=== PATIENT | female | born 1950 | race Caucasian/White ===

== ENCOUNTER 2017-01-25 09:02 | Day surgery (SDC) | payer OTHER, MEDICARE ==
--- NOTE | 2017-01-10 15:45 | HP ---
DATE OF ADMISSION: 01/25/2017 BRIEF HISTORY: This is a 66-year-old female who presented to the office with 2 complaints. One is complaining of a soft tissue mass in her right thigh x2 and a mass in her right hand. The patient states touching the mass in the hand causes her discomfort as well as touching the mass on her thigh. Therefore, she presented for evaluation. She has had these for many, many years. PAST MEDICAL HISTORY: Significant for kidney stones, cardiac disease, and hypertension. PAST SURGICAL HISTORY: Removal of the kidney stones, left knee replacement, and excisions of previous skin nevi. MEDICATIONS: Cardizem. ALLERGIES: None. SOCIAL HISTORY: The patient does not smoke nor drink. PHYSICAL EXAMINATION: Lungs: Clear. Heart: Regular rhythm. Abdomen: Soft, nontender, nondistended. Extremities: Right thigh, on the anterolateral aspect of the right thigh after 2 discrete masses. They are by 2-3 fingerbreadths. The larger mass is superior, and it is approximately 2-3 cm in length and 1.5 cm in width. The smaller one is about 1.5 to 2 cm similar width. They are discrete. Upon touching these areas, the patient complains of having pain that shoots up the right lateral aspect of the thigh. Examination of right hand, on the dorsum of the right hand overlying the tendon for the index finger is a 2-mm hard nodule noted. It is mildly tender on exam as well. No overlying skin changes. IMPRESSION/PLAN: Soft tissue mass, right leg most likely consistent with lipoma. Since the patient is having some discomfort with these, we will plan for excision in the operating room. Soft mass right hand. This is most likely related to an ossification; however, further evaluation with x-rays will be needed. Since this is not my field of specialty, I have referred her to a hand surgeon. I will let the hand surgeon work this up with x-rays as needed. The indications, alternatives, and complications of excision of soft tissue mass right thigh was discussed. The patient understands. Will sign consent the day of surgery. FARIHA SHIN M.D. [id number] cc: Kelsi Kirkland MD
[2017-01-23 16:38] VITALS: BMI 41.5
[2017-01-25] MEDS ORDERED: MIDAZOLAM HCL 2 MG/2 ML SINGLE DOSE VIAL ONE (10:49)
[2017-01-25] MEDS ORDERED: PROPOFOL 20 ML ONE ×2 (10:49)
[2017-01-25] MEDS ORDERED: LIDOCAINE 1%/EPI 1:100000 (20 ML MULTI DOSE VIAL) ONE (11:29)
[2017-01-25] MEDS ORDERED: KETOROLAC TROMETHAMINE 30 MG/1 ML VIAL ONE (11:33)
[2017-01-25] MEDS ORDERED: ceFAZolin SODIUM 1 GM VIAL ONE (11:33)
[2017-01-25] MEDS ORDERED: ONDANSETRON 4 MG/2 ML VIAL ONE (11:33)
[2017-01-25] MEDS ORDERED: DEXAMETHASONE SOD PHOSPHATE 4 MG/1 ML VIAL ONE (11:33)
[2017-01-25] MEDS ORDERED: LIDOCAINE 1%/EPI 1:100000 (20 ML MULTI DOSE VIAL) INF ONE (11:40)
[2017-01-25 12:21] VITALS: TEMP 97.7
[2017-01-25 12:41] VITALS: BP 136/72; PULSE 64
--- NOTE | 2017-01-25 20:39 | OP ---
DATE OF OPERATION: 01/25/2017 PREOPERATIVE DIAGNOSIS: Right leg lipoma x2. POSTOPERATIVE DIAGNOSIS: Right leg lipoma x2. PROCEDURE: Incision right leg lipoma x2 with total 6-cm intermediate wound closure. SURGEON: Michael Shin M.D. [facility] FACULTY ASSISTANT: None. ANESTHESIOLOGIST: Leonides Putnam M.D. ANESTHESIA: MAC/1% lidocaine without epinephrine. ESTIMATED BLOOD LOSS: Minimal. SPECIMEN: Lipoma x2. INDICATION FOR PROCEDURE: This is a 66-year-old female with two soft tissue masses to the right lower extremity. They cause her discomfort. Physical findings consistent with lipoma. She is here for excision. DESCRIPTION OF PROCEDURE: Patient is identified, and appropriately positioned on operating room table. She is placed on IV sedation, the area prepped and draped in the usual sterile fashion with Chloraprep. 1% lidocaine without epinephrine is used for local anesthesia, approximately 10 mL. The superior lipoma was identified first. A 4-cm incision overlying the superior lipoma is made, deepened in subcutaneous tissue. The lipoma excised sharply. The wound irrigated. The operative field was noted to be hemostatic. The dermis was reapproximated with interrupted 3-0 Vicryl suture. The skin closed with 4-0 subcuticular Biosyn. The superior specimen was labeled, right leg lipoma superior. The next specimen was labeled, right leg lipoma inferior. Again, a 2-cm incision overlying the second lipoma was made, deepened in subcutaneous tissue. The lipoma was sharply excised in a similar fashion, the wound reapproximated similarly. Total length 6 cm. ATTESTATION: Brief operative note handwritten on the preprinted form MICHAEL SHIN M.D. /[id number]
--- NOTE | 2017-01-31 10:34 | PATH ---
Surgical Pathology Report Patient Name: ROCCO CASIANO [facility]. Rec. #: [id number] /Age/Gender: 1950 (Age: 66) / F Account: [id number] Location: [facility] Taken: 01/25/2017 Received: 01/25/2017 Reported: 01/31/2017 Physicians: Michael Brush Specimen(s) Received A: RIGHT LEG SUPERIOR LIPOMA B: RIGHT LEG INFERIOR LIPOMA Clinical History Right leg lipoma x2 Final Diagnosis A. RIGHT LEG, SUPERIOR LIPOMA, EXCISION: MATURE ADIPOSE TISSUE, CONSISTENT WITH LIPOMA. B. RIGHT LEG, INFERIOR LIPOMA, EXCISION: MATURE ADIPOSE TISSUE, CONSISTENT WITH LIPOMA. Electronically Signed Araceli Olea M.D. Gross Description A. Received in formalin labeled "right leg superior lipoma," is a 4.5 x 3.5 x 1.5 cm aggregate of yellow portions of lobulated adipose tissue. No areas of hemorrhage or necrosis are identified. [employer] sections are submitted in 2 cassettes. B. Received in formalin labeled "right leg inferior lipoma," is a 3.0 x 2.3 x 1.7 cm portion of yellow, lobulated adipose tissue. No areas of hemorrhage or necrosis are identified. [employer] sections are submitted in one cassette. 01/26/201701/26/2017
== END 2017-01-25 12:43 | disposition home or self-care (01) ==
LOC: FASU 09:02
PROVIDERS: ATTEND Surgery
PROC: 0JBL0ZZ Excision of Right Upper Leg Subcutaneous Tissue and Fascia, Open Approach (ICD-10-PCS; 2017-01-25)
PROC: 0JQL0ZZ Repair Right Upper Leg Subcutaneous Tissue and Fascia, Open Approach (ICD-10-PCS; principal; 2017-01-25 11:40)
DX: D17.23 Benign lipomatous neoplasm of skin and subcutaneous tissue of right leg (principal)
CPT/HCPCS: 88304-TC